=== PATIENT | female | born 1970 | race Hispanic/Latino ===

== ENCOUNTER 2021-10-30 16:02 | Outpatient (CLI) | payer OTHER | END 2021-10-30 16:03 | disposition home or self-care (01) | LOC: BICMRI 16:02 | PROVIDERS: ATTEND Family Medicine | DX: S80.01XD Contusion of right knee, subsequent encounter (principal); S83.91XD Sprain of unspecified site of right knee, subsequent encounter; M17.11 Unilateral primary osteoarthritis, right knee; S83.241A Other tear of medial meniscus, current injury, right knee, initial encounter; M76.51 Patellar tendinitis, right knee ==